=== PATIENT | male | born 1960 | race Hispanic/Latino ===

== ENCOUNTER 2025-01-13 21:25 | Emergency (ER) | payer BC, OTHER ==
[~2025-01-13] VITALS: Ht 165.1 cm; Wt 74.8 kg
[2025-01-13 21:50] LABS: BASOPHILS # (AUTO) 0.05 K/uL (0.00-0.20); BASOPHILS % (AUTO) 0.5 % (0.0-5.0); EOSINOPHILS # (AUTO) 0.23 K/uL (0.00-0.70); EOSINOPHILS % (AUTO) 2.4 % (0.0-8.0); IMMATURE GRANULOCYTE ABSOLUTE 0.05 K/uL (0-1); LYMPHOCYTES # (AUTO) 4.1 K/uL (1.0-4.8); MEAN CORPUSCULAR HEMOGLOBIN 28.6 pg (27.0-33.0); MEAN CORPUSCULAR VOLUME 86.6 fL (79-99); MONOCYTES % (AUTO) 10.2 % (3.0-13.0); NEUTROPHILS # (AUTO) 4.3 K/uL (1.8-7.7); NEUTROPHILS % (AUTO) 44.4 % (40.0-77.0); PLATELET COUNT (AUTO) 194 K/uL (130-400); RED BLOOD CELL COUNT(AUTO) 5.31 MIL/uL (4.50-6.20); RED CELL DISTRIBUTION WIDTH 13.4 % (11.0-15.5); WHITE BLOOD COUNT (AUTO) 9.7 K/uL (4.8-10.8)
--- NOTE | 2025-01-13 21:51 | NUR ---
PATIENT REPORTS BLOOD SUGAR HAS BEEN LOW SINCE HIS PCP RECENTLY CHANGED HIS DIABETES MEDICATION
[2025-01-13 22:02] LABS: CREATININE 1.3 mg/dL (0.5-1.3); POTASSIUM 3.7 mmol/L (3.5-5.1)
--- NOTE | 2025-01-13 22:27 | ERN ---
ED Note History of Present Illness Stated Complaint: LOW GLUCOSE Chief Complaint: Hypoglycemia Time Seen by MD: 21:31 Dictation: This is a 64-year-old male who presented to the emergency room stating that his glucose was low he started feeling nauseated. This was about 30 minutes prior to the presentation. He stated that his glucose was 62 at home and he took a glucose tablet. In triage the glucose was 82 he did not report any loss of consciousness shakiness. He has taken his diabetes medications. Patient was on metformin 500 mg once a day and 3 weeks ago he was switch to Janumet 50 mg twice a day. He has a monitoring system like [employer] and he started noticing the alarms that his sugars were low. In the past 1 week, his primary care physician changed the gentleman to once a day. Temperature 97.8 pulse 76 respirations 16 blood pressure 157/83 with a pulse oximetry of 98% on room air His chronic medical problems include diabetes mellitus and hypercholesterolemia Allergies: Coded Allergies: No Known Allergies (Unverified Allergy, Unknown, 01/13/25) Past Medical History Past Medical History: Diabetes-Type II, High Cholesterol Surgical History: None Family History: Negative RN Note Reviewed/Agreed w/PFSH: Yes Review of System Dictation Constitutional: Negative for fever,chills, and weight loss Eyes: Negative for injury, pain,redness, and discharge ENT: Negative for injury,pain or swelling Cardiovascular: Negative for chest pain, palpitations, and edema Respiratory: Negative for shortness of breath, cough, and wheezing, Abdomen/GI: Negative for abdominal pain,, vomiting, diarrhea, and constipation positive for nausea Back: Negative for injury and pain : Negative for injury, bleeding and discharge MS/Extremity: Negative for injury and deformity Skin: Negative for rash, and discoloration Neuro: Negative for headache, weakness, numbness, tingling, and seizure Psych: Negative for suicide ideation, homicidal ideation, and hallucinations Initial Vital Sign VS Vital Signs Date Time Temp Pulse Resp B/P (MAP) Pulse Ox O2 Delivery O2 Flow Rate FiO2 01/13/25 21:27 97.9 76 16 157/83 97 Room Air 01/13/25 21:48 0 21 Physical Exam Dictation General: awake, alert, NAD Head/Face: Normocephalic, atraumatic Eyes: PERRL, EOMI, vision at baseline ENT: oral cavity clear, TMs clear, no signs of infection Neck: Trachea midline, supple, no nuchal rigidity Cardiovascular: RRR, normal S1/S2, No MRGs, no JVD Respiratory: CTAB, no respiratory distress, No rales or wheezes Abdomen: Soft, non-tender, non-distended, normal bowel sounds, no guarding or rebound. Skin: Warm, dry, normal turgor, no rash MS/Extremity: Pulses equal, no cyanosis, neurovascular intact, FROM Neuro: COAx4, GCS 15, strength 5/5, CN 2-12 intact, normal cerebellar exam, normal gait, Psych: Normal behavior, mood, and affect normal Extremities-trace edema without any palpable cords, Homans sign is negative Results (Laboratory/Radiology) Laboratory/Radiology Laboratory Tests Test 01/13/25 21:31 01/13/25 21:41 Whole Blood Glucose 82 MG/DL (70-110) White Blood Count 9.7 K/uL (4.8-10.8) Red Blood Count 5.31 MIL/uL (4.50-6.20) Hemoglobin 15.2 g/dL (14.0-18.0) Hematocrit 46.0 % (42-54) Mean Corpuscular Volume 86.6 fL (79-99) Mean Corpuscular Hemoglobin 28.6 pg (27.0-33.0) Mean Corpuscular Hemoglobin Concent 33.0 g/dL (32.0-36.0) Red Cell Distribution Width 13.4 % (11.0-15.5) Platelet Count 194 K/uL (130-400) Mean Platelet Volume 10.4 fL (7.5-10.5) Immature Granulocyte % (Auto) 0.5 % (0-1) Neutrophils (%) (Auto) 44.4 % (40.0-77.0) Lymphocytes (%) (Auto) 42.0 % (21.0-51.0) Monocytes (%) (Auto) 10.2 % (3.0-13.0) Eosinophils (%) (Auto) 2.4 % (0.0-8.0) Basophils (%) (Auto) 0.5 % (0.0-5.0) Neutrophils # (Auto) 4.3 K/uL (1.8-7.7) Lymphocytes # (Auto) 4.1 K/uL (1.0-4.8) Monocytes # (Auto) 1.0 K/uL (0.1-1.0) Eosinophils # (Auto) 0.23 K/uL (0.00-0.70) Basophils # (Auto) 0.05 K/uL (0.00-0.20) Absolute Immature Granulocyte (auto 0.05 K/uL (0-1) Nucleated Red Blood Cells 0.0 % (0.0-0.19) Sodium Level 136 mmol/L (136-145) Potassium Level 3.7 mmol/L (3.5-5.1) Chloride Level 101 mmol/L (101-111) Carbon Dioxide Level 28 mmol/L (21-32) Blood Urea Nitrogen 17 mg/dL (7-18) Creatinine 1.3 mg/dL (0.5-1.3) Glomerular Filtration Rate Calc 62 mL/min (>90) Random Glucose 92 mg/dL (70-105) Total Calcium 8.9 mg/dL (8.5-10.1) Labs Reviewed?: Yes ED Course ED Course Orders Procedure Category Date Status Time Bedside Glucose CPOE 01/13/25 Transmitted Fingerstick 21:34 Cbc With Differential LAB 01/13/25 Complete 21:35 Basic Metabolic Panel LAB 01/13/25 Complete 21:35 Vital Signs Date Time Temp Pulse Resp B/P (MAP) Pulse Ox O2 Delivery O2 Flow Rate FiO2 01/13/25 21:48 89 18 151/80 96 Room Air* 0 21 01/13/25 21:27 97.9 76 16 157/83 97 Room Air We will perform diagnostic labs, and administer medications according to the patient's complaint. Once the results are available, will review and personally interpreted the labs to rule out any acute life-threatening emergency the trach require immediate intervention and treatment. I will then re-evaluate the patient after treatment and diagnostic exams have return to determine whether the patient requires any further testing, can safely be discharged home or need further admission to hospital for additional treatment and evaluation. 10:26 p.m. labs reviewed CBC is with a normal limits BNP 7 showed a BUN and creatinine of 17 and 1.3 and a glucose of 92 Medical Decision Making MDM MDM: Differential diagnosis: Medication induced hypoglycemia, infection, lactic acidosis, hyperglycemic T Rationale: Tests considered and ordered secondary to shared decision making include: Previous outside records reviewed: Old ER visits. Risk of complication and/or morbidity or mortality of patient management: None Medications-Per medication reconciliation Need for hospitalization: Patient does not meet criteria for hospitalization. Need for emergency major/minor surgery: No There are no social concerns with this patient. Prescription drug management Prescriptions will include symptomatic care Patient's prior external medical records from other ER visits were reviewed by me as indicated. Prior testing and results from previous visits were reviewed. Prior tests were taken into account with medical decision making and resource utilization, independent historian/historians were used to obtain complete medical history. I independently interpreted the test that were performed, results were reviewed by me and considered findings on radiology if ordered. Medical management and examination interpretation discussions were had by me with other qualified healthcare professionals as indicated for the patient's care. Problem List Problem List: (1) Hypoglycemic episode in patient with diabetes mellitus (2) Hypercholesterolemia DX & DISP Disposition: Discharge Departure Impression: Primary Impression: Hypoglycemic episode in patient with diabetes mellitus Additional Impression: Hypercholesterolemia Condition: Stable Additional Instructions: Patient and the caregiver have been informed of all the diagnostic tests and the imaging conducted during the today's visit to the emergency room and has sheyla potter understanding of the results I have personally reviewed and interpreted all diagnostic exams performed here in the ER today as well as the vital signs documented by the nursing staff. The patient is now being discharged to home and should follow up with the primary care physician or the specialist as directed by the ER staff. Follow-up with primary care provider in 1 to 2 days. Take medications as directed here in the emergency room. Okay to continue home medications unless otherwise discussed during your visit in the emergency room today. Return to your nearest emergency room if symptoms worsen or if there is no improvement. Call 911 if you need immediate assistance. Take Tylenol or Motrin [id number] as needed and if no contraindications are present. Increase oral hydration. A wound culture or urine culture was ordered here in the emergency room department please follow-up with primary care provider and advise them to get repeat ports from our facility. If you had any Jonathan wrap/splints t hat were applied here, please do not remove them until you see your primary care or specialty. Instructed to not take the Janumet and monitor his sugars overnight and be liberal with his sugar intake and address with his primary care physician in the morning. Referrals: SELF,REFERRAL (PCP) THOPU,MARY R MD Jan 13, 2025 22:27
[2025-01-13 22:45] VITALS: BP 154/89; PULSE 70; RESP 18; TEMP 98.4; O2SAT 98
== END 2025-01-13 22:50 | disposition home or self-care (01) ==
LOC: EDH 21:25
DX: E11.649 Type 2 diabetes mellitus with hypoglycemia without coma (principal); E78.00 Pure hypercholesterolemia, unspecified
CPT/HCPCS: 36415; 80048; 82948; 85025; 99283